=== PATIENT | male | born 1985 | race Caucasian/White ===

== ENCOUNTER 2020-12-21 09:29 | Emergency (ER) | payer BC, OTHER ==
[2020-12-21 09:34] VITALS: BP 129/85; PULSE 91; RESP 16; TEMP 98.2
--- NOTE | 2020-12-21 09:55 | ED ---
Psych HPI - General Source: patient, RN notes reviewed Mode of arrival: ambulatory Limitations: no limitations <Lv Quiroz - Last Filed: 12/21/20 09:52> <Dominic Koch - Last Filed: 12/21/20 15:25> - General Chief Complaint: Psychiatric Symptoms Stated Complaint: Mental Health Time Seen by Provider: 12/21/20 09:36 - History of Present Illness Initial Comments: 35-year-old male presents emergency Department with chief complaint depression, suicidal ideation. Patient states that he has a history of depression but states that on Friday his child called CPS and he states may a false allegation. Patient states that he stayed home from work yesterday because he planned to kill himself but states that he did not do it because he did not want his kids to find him. Patient denies any recent alcohol use E does meant to marijuana but states there is marked marijuana card. Patient has a history anxiety. No physical complaints of usual. Denies homicidal ideation (Lv Quiroz) - Related Data Home Medications Medication Instructions Recorded Confirmed No Known Home Medications 12/21/20 12/21/20 Allergies Allergy/AdvReac Type Severity Reaction Status Date / Time No Known Allergies Allergy Verified 12/21/20 10:34 Review of Systems ROS Other: All systems not noted in ROS Statement are negative. <Lv Quiroz - Last Filed: 12/21/20 09:52> ROS Other: All systems not noted in ROS Statement are negative. <Dominic Koch - Last Filed: 12/21/20 15:25> ROS Statement: Those systems with pertinent positive or pertinent negative responses have been documented in the HPI. Past Medical History Past Medical History: COPD Past Surgical History: No Surgical Hx Reported Past Psychological History: No Psychological Hx Reported Smoking Status: Current every day smoker Past Alcohol Use History: None Reported Past Drug Use History: Marijuana <Lv Quiroz - Last Filed: 12/21/20 09:52> General Exam Limitations: no limitations General appearance: alert, in no apparent distress Head exam: Present: atraumatic, normocephalic, normal inspection Eye exam: Present: normal appearance, PERRL, EOMI. Absent: scleral icterus, conjunctival injection, periorbital swelling ENT exam: Present: normal exam, mucous membranes moist Neck exam: Present: normal inspection, full ROM. Absent: tenderness, meningismus, lymphadenopathy Respiratory exam: Present: normal lung sounds bilaterally. Absent: respiratory distress, wheezes, rales, rhonchi, stridor Cardiovascular Exam: Present: regular rate, normal rhythm, normal heart sounds. Absent: systolic murmur, diastolic murmur, rubs, gallop, clicks GI/Abdominal exam: Present: soft, normal bowel sounds. Absent: distended, t enderness, guarding, rebound, rigid Neurological exam: Present: alert, oriented X3 Skin exam: Present: warm, dry, intact, normal color. Absent: rash <Lv Quiroz - Last Filed: 12/21/20 09:52> Course Vital Signs 12/21/20 09:31 Temperature 98.2 F Pulse Rate 91 Respiratory 16 Rate Blood Pressure 129/85 O2 Sat by Pulse 99 Oximetry Medical Decision Making <Dominic Koch - Last Filed: 12/21/20 15:25> - Medical Decision Making Patient was seen by mental health services with plan for discharge. Patient reevaluated by myself. Patient denies suicidal ideation and does contract for safety. Family is present. (Dominic Koch) - Lab Data Lab Results 12/21/20 Range/Units 10:47 Urine Opiates Screen Not Detected (NotDetected) Ur Oxycodone Screen Not Detected (NotDetected) Urine Methadone Screen Not Detected (NotDetected) Ur Propoxyphene Screen Not Detected (NotDetected) Ur Barbiturates Screen Not Detected (NotDetected) U Tricyclic Antidepress Not Detected (NotDetected) Ur Phencyclidine Scrn Not Detected (NotDetected) Ur Amphetamines Screen Not Detected (NotDetected) U Methamphetamines Scrn Not Detected (NotDetected) U Benzodiazepines Scrn Not Detected (NotDetected) Urine Cocaine Screen Not Detected (NotDetected) U Marijuana (THC) Screen Detected H (NotDetected) Disposition <Lv Quiroz - Last Filed: 12/21/20 09:52> Is patient prescribed a controlled substance at d/c from ED?: No Decision Time: 15:24 <Dominic Koch - Last Filed: 12/21/20 15:25> Clinical Impression: Depression Disposition: HOME SELF-CARE Condition: Stable Instructions (If sedation given, give patient instructions): Depression (ED), Help Prevent Suicide (ED) Additional Instructions: Please do follow-up with mental health services as directed. Please follow-up with primary care physician in the next day or 2 for recheck. Return for thoughts of self-harm, worsening symptoms or other concerns. Referrals: Willian Arnold MD [STAFF PHYSICIAN] - 1-2 days Ildefonso Montanez MD [STAFF PHYSICIAN] - 1-2 days
[2020-12-21 11:14] LABS: Amphetamine Screen,Urine Not Detected (NotDetected); Barbiturate Screen,Urine Not Detected (NotDetected); Benzodiazepines Screen,Urine Not Detected (NotDetected); Cocaine Screen,Urine Not Detected (NotDetected); Methadone Screen, Urine Not Detected (NotDetected); Opiate Screen,Urine Not Detected (NotDetected); Oxycodone Screen, Urine Not Detected (NotDetected); Phencyclidine Screen,Urine Not Detected (NotDetected); Tricyclic Antidepressant,Urine Not Detected (NotDetected); Urn Cannabinoid Scrn Detected (NotDetected)
== END 2020-12-21 15:31 | disposition home or self-care (01) ==
LOC: EC 09:29
DX: F32.9 Major depressive disorder, single episode, unspecified (principal); F17.200 Nicotine dependence, unspecified, uncomplicated; J44.9 Chronic obstructive pulmonary disease, unspecified; F12.90 Cannabis use, unspecified, uncomplicated
CPT/HCPCS: 80306; 82075; 99285